=== PATIENT | female | born 1980 | race Caucasian/White ===

== ENCOUNTER 2023-06-20 14:00 | Emergency (ER) | payer SELFPAY ==
[2023-06-21] MEDS ORDERED: HYDR25TA5 PO (00:07)
[2023-06-21] MEDS ORDERED: NAPR-56 PO (00:07)
== END 2023-06-20 16:27 | disposition left against medical advice (07) ==
LOC: ER 14:01
DX: M25.569 Pain in unspecified knee (principal); Z53.21 Procedure and treatment not carried out due to patient leaving prior to being seen by health care provider
CPT/HCPCS: 99281

== ENCOUNTER 2023-06-20 20:54 | Emergency (ER) | payer MEDICAID ==
[~2023-06-20] VITALS: Ht 157.5 cm; Wt 76.4 kg
[2023-06-20 20:56] VITALS: TEMP 98
[2023-06-20 21:15] LABS: URINE HCG NEGATIVE (NEG)
[2023-06-20] MEDS ORDERED: CefTRIAXone 1000mg IM Kit (w/lidocaine diluent) IM STA (23:53)
[2023-06-20] MEDS ORDERED: azithromycin 250mg tablet PO ONE (23:55)
[2023-06-20] MEDS ORDERED: naproxen 500mg tablet PO ONE (23:55)
[2023-06-20] MEDS ORDERED: HYDROcodone/acetaminophen 10/325mg tab PO ONE (23:55)
[2023-06-21] MEDS ORDERED: HYDROchlorothiazide 25mg tablet PO ONE (00:05)
[2023-06-21] MEDS ORDERED: HYDR25TA5 PO (00:07)
[2023-06-21] MEDS ORDERED: NAPR-56 PO (00:07)
[2023-06-21 00:27] LABS: URINE AMPHETAMINE SCREEN POSITIVE (Neg); URINE BARBITUATE SCREEN NEGATIVE (Neg); URINE BENZODIAZEPINES SCREEN NEGATIVE (Neg); URINE CANNABINOID SCREEN NEGATIVE (Neg); URINE COCAINE SCREEN NEGATIVE (Neg); URINE METHADONE SCREEN NEGATIVE (Neg); URINE OPIATE SCREEN NEGATIVE (Neg); URINE PHENCYCLIDINE SCREEN NEGATIVE (Neg)
[2023-06-21 00:31] VITALS: BP 143/70; PULSE 78; RESP 18; O2SAT 99
[2023-06-23 10:44] LABS: CHLAMYDIA TRACHOMATIS, NAA Negative (Negative)
== END 2023-06-21 00:34 | disposition home or self-care (01) ==
LOC: ER 20:54
DX: M25.462 Effusion, left knee (principal); I10 Essential (primary) hypertension; F15.10 Other stimulant abuse, uncomplicated; Z79.899 Other long term (current) drug therapy; F17.200 Nicotine dependence, unspecified, uncomplicated
CPT/HCPCS: 36415; 73564; 80305; 81025; 87491; 87591; 99284; J0696